=== PATIENT | female | born 1950 | race Caucasian/White ===

== ENCOUNTER 2018-05-06 12:34 | Day surgery (SDC) | payer BC, SELFPAY ==
--- NOTE | 2018-05-06 | PATH_ITS ---
[facility] Accession Number: [id number] . 01 Material submitted: . POLYP @ . 02 Diagnosis: Biopsy Colon Polyp at 20 cm: Hyperplastic polyp involving multiple biopsy fragments. MRV/05/07/2018 . 02 Electronically signed: . Dusty Guardado MD, Pathologist NPI- [id number] . 01 Gross description: . Received in one formalin-filled container labeled with the patient's name and labeled polyp at 20 cm, are multiple 0.1-0.3 cm portions of tissue, entirely submitted in one cassette. ([id number]) /FRR . 02 Pathologist provided ICD-10: K63.5 . 02 CPT . 648657 Performed at: 01 [facility] [address] [place] [address], [place], [place] [id number] MD Elton Clement MD Phone: [phone] Performed at: 02 [facility] [address] [place], [place] [id number] MD Werner Michael MD Phone: [phone]
[2018-05-06 13:25] VITALS: BP 104/62; PULSE 97; RESP 16; TEMP 36; O2SAT 95; BMI 30.2
[2018-05-06] MEDS: SODIUM CHLORIDE 0.9% 1,000 ML 200 ML IV (13:36)
[2018-05-06] MEDS: INSULIN REGULAR 100 UNIT/ML 3 ML VIAL IV (13:50)
--- NOTE | 2018-05-06 15:04 | PM.PREOP ---
Pre-operative Note Interval Note Pre-op Check: Yes History & Physical Reviewed by Physician and Yes Exam Performed Changes: No ASA Class (for procedural sedation): III
[2018-05-06] MEDS: fentaNYL 250 MCG/5 ML INJ IV (15:45)
[2018-05-06] MEDS: MIDAZOLAM 5 MG/5 ML VIAL IV (15:46)
[2018-05-06 15:54] VITALS: BP 124/64; PULSE 76; RESP 10; TEMP 36.4; O2SAT 95
[2018-05-06 15:56] VITALS: BP 110/62; PULSE 75; RESP 14; O2SAT 94
--- NOTE | 2018-05-06 15:59 | PM.OP.ENDO ---
Operative Date/Time/Diagnoses Date of procedure: 05/06/18 Time of procedure: 15:46 Pre-op diagnosis: Rectal bleeding. History of polyps Post-op diagnosis: same (Sigmoid diverticulosis. Multiple tiny lesions in the rectum probably lymphoid follicles. Random biopsies taken) Procedure & Clinicians Study performed: Colonoscopy with cold biopsy Same procedure as scheduled: Yes Indications: Rectal bleeding Surgeon: Mike Alonzo Procedure Notes SCOAP/Timeout: Performed Procedure in detail: The patient was placed in the left lateral decubitus position and underwent IV sedation directed by the surgeon consisting of fentanyl and Versed. Digital exam was remarkable for a very lax sphincter and a great deal of irritation of the skin around the anus. The scope was inserted and advanced through the rectum into the sigmoid, descending, transverse, and ascending colon.[Patient was noted have sigmoid diverticulosis. There was some tortuosity of the colon as well.]. The cecum was reached identified by the ileocecal valve and the appendiceal opening. The scope was gradually brought out. Polyps were found in the rectum but they were too numerous and looked to be non neoplastic. I took a [employer] sales representative sampling.. The scope ultimately was retroflexed in the rectum. The appearance was normal. The scope was removed and the patient tolerated the procedure well Scope withdrawal time: 10.5 min Sedation minutes: 32 Findings: diverticulosis and polyp Specimen(s): other (Polyps in the rectum) Complications: none Recommendations: Colonscopy in 5 years Follow up: as needed Disposition: PACU
[2018-05-06 16:01] VITALS: BP 113/61; PULSE 73; RESP 10; TEMP 36.3; O2SAT 94
[2018-05-06 16:10] VITALS: BP 117/48; PULSE 72; RESP 10; TEMP 36.1; O2SAT 95
--- NOTE | 2018-05-06 16:23 | SUR.PHASEII ---
Dr. Morgan notified of bg of 191. Per physician verbal order, pt to manage at home as per her normal recommendations by PCM. Pt verbally agrees to plan. Ashley RN, nurse assuming care also notified of plan.
--- NOTE | 2018-05-06 16:30 | SUR.PHASEII ---
assumed care from Sloane lang called dr hernandez about 191 blood sugar, instructed to follow up at home with treatment at home. pt voiced an understanding- selvin hinojosa called and pt left in stable condition.
== END 2018-05-06 16:34 | disposition home or self-care (01) ==
PROVIDERS: Family Provider Physician Assistant; PCP Physician Assistant; Visit Provider Specialist
PROC: 0DJD8ZZ Inspection of Lower Intestinal Tract, Via Natural or Artificial Opening Endoscopic (ICD-10-PCS; CPT 45378; principal; 2018-05-06 14:00)
DX: K63.5 Polyp of colon (principal); Z86.010 Personal history of colon polyps; K57.30 Diverticulosis of large intestine without perforation or abscess without bleeding; E11.9 Type 2 diabetes mellitus without complications; Z79.4 Long term (current) use of insulin; I10 Essential (primary) hypertension; E78.5 Hyperlipidemia, unspecified; M79.7 Fibromyalgia; E03.9 Hypothyroidism, unspecified
CPT/HCPCS: 45380; 99152; 99153; J2250; J3010

== ENCOUNTER → 2018-08-02 12:42 | Outpatient (CLI) | payer BC, SELFPAY ==
--- NOTE | 2018-08-02 12:43 | DI.MG.S_ITS ---
BILATERAL DIGITAL SCREENING MAMMOGRAM 3D/2D WITH CAD: 08/02/2018 CLINICAL: Routine screening. Comparison is made to exams dated: 05/26/2016 mammogram, 05/14/2015 mammogram, and 04/17/2014 mammogram - [facility]. The tissue of both breasts is predominantly fatty. Current study was also evaluated with a Computer Aided Detection (CAD) system. No significant masses, calcifications, or other findings are seen in either breast. There has been no significant interval change. IMPRESSION: NEGATIVE There is no mammographic evidence of malignancy. A 1 year screening mammogram is recommended. This exam was interpreted at Station ID: [id number]. NOTE: For mammograms, a report in lay terms will be sent to the patient. Approximately 15% of breast malignancies will not be visualized mammographically. In the management of a palpable breast mass, a negative mammogram must not discourage biopsy of a clinically suspicious lesion. Electronically Signed By: Yen rodrigues/vanessa:08/02/2018 13:35:20 letter sent: Normal Exam ACR BI-RADS Category 1: Negative 3341F
== END ==
PROVIDERS: Family Provider Physician Assistant; PCP Physician Assistant; Visit Provider Physician Assistant
DX: Z12.31 Encounter for screening mammogram for malignant neoplasm of breast (principal)
CPT/HCPCS: 77063; 77067

== ENCOUNTER → 2018-08-24 11:25 | Outpatient (CLI) | payer BC, SELFPAY ==
[2018-08-24 12:38] LABS: Alanine Aminotransferase 23 IU/L (9-52); Albumin 4.2 g/dL (3.5-5.0); Albumin Globulin Ratio 1.4 (1.0-2.8); Alkaline Phosphatase 77 U/L (38-126); Aspartate Aminotransferase 23 IU/L (14-36); Bilirubin Total 0.6 mg/dL (0.2-1.3); Blood Urea Nitrogen 14 mg/dL (7-17); Calcium 9.2 mg/dL (8.4-10.2); Carbon Dioxide 25 mmol/L (22-32); Chloride 106 mmol/L (98-107); Cholesterol 190 mg/dL (140-199); Estimated Glomerular Filt Rate > 60.0 mL/min (>60); Globulin 3.1 g/dL (1.7-4.1); Glucose 70 mg/dL (80-110); HDL Cholesterol 50 mg/dL (40-60); HEMOLYSIS < 15 (0-50); LDL Cholesterol Calculated 104 mg/dL (<100); Potassium 3.8 mmol/L (3.4-5.1); Sodium 140 mmol/L (137-145); Total Protein 7.3 g/dL (6.3-8.2); Triglycerides 178 mg/dL (35-150)
[2018-08-24 12:56] LABS: Free T4, Direct Thyroxine 0.96 ng/dL (0.78-2.19)
[2018-08-24 13:10] LABS: Thyroid Stimulating Hormone 1.98 uIU/mL (0.47-4.68)
[2018-08-24 14:35] LABS: Creatinine Urine Random 207.3 mg/dL
[2018-08-24 14:40] LABS: Microalbumi Creatinin Ratio Ur 13.9 ug/mg CR (<30); Microalbumin Urine Random 2.9 mg/dL (0-1.6)
== END ==
PROVIDERS: Family Provider Internal Medicine Cardiovascular Disease; PCP Physician Assistant; Visit Provider Physician Assistant
DX: E03.9 Hypothyroidism, unspecified (principal); E78.2 Mixed hyperlipidemia; I10 Essential (primary) hypertension; Z20.820 Contact with and (suspected) exposure to varicella
CPT/HCPCS: 36415; 80053; 80061; 82043; 82570; 84439; 84443; 86787

== ENCOUNTER → 2018-09-12 17:08 | Outpatient (CLI) | payer BC, SELFPAY ==
[2018-09-12 18:14] LABS: Hemoglobin A1C% w Est Avg Glu 9.9 % (4.0-6.0)
== END ==
PROVIDERS: Family Provider Internal Medicine Cardiovascular Disease; PCP Physician Assistant; Visit Provider Physician Assistant
DX: E11.65 Type 2 diabetes mellitus with hyperglycemia (principal); E11.8 Type 2 diabetes mellitus with unspecified complications; Z79.4 Long term (current) use of insulin
CPT/HCPCS: 36415; 83036

== ENCOUNTER → 2019-02-05 08:08 | Outpatient (CLI) | payer BC, SELFPAY ==
[2019-02-05 09:43] LABS: Add Manual Diff / Slide Review NO; Basophils Absolute Auto 100 /uL (0-100); Basophils Percent Auto 0.6 % (0-2); Eosinophils Absolute Auto 200 /uL (0-450); Eosinophils Percent Auto 2.2 % (2-4); Hematocrit 40.6 % (36-46); Hemoglobin 13.8 g/dL (12.0-16.0); Lymphocytes Absolute Auto 3800 /uL (1100-4500); Lymphocytes Percent Auto 36.9 % (25-40); Mean Corpuscular HGB Conc 34.1 % (30-36); Mean Corpuscular Hemoglobin 30.9 PG (26-34); Mean Corpuscular Volume 90.6 fL (80-100); Monocytes Absolute Auto 900 /uL (0-900); Monocytes Percent Auto 8.8 % (3-14); Neutrophils Absolute Auto 5300 /uL (1500-7000); Neutrophils Percent Auto 51.5 % (50-75); Platelet Count 290 X10^3/uL (150-400); Red Blood Cell Count 4.48 X10^6/uL (4.0-5.2); Red Cell Distribution Width 13.5 % (11.6-14.8); White Blood Cell Count 10.4 X10^3/uL (4.5-11.0)
[2019-02-05 09:54] LABS: Hemoglobin A1C% w Est Avg Glu 8.2 % (4.0-6.0)
[2019-02-05 10:15] LABS: Alanine Aminotransferase 18 IU/L (9-52); Albumin 4.3 g/dL (3.5-5.0); Albumin Globulin Ratio 1.4 (1.0-2.8); Alkaline Phosphatase 92 U/L (38-126); Aspartate Aminotransferase 26 IU/L (14-36); BUN Creatinine Ratio 23.8 (6-22); Bilirubin Total 0.5 mg/dL (0.2-1.3); Blood Urea Nitrogen 19 mg/dL (7-17); Calcium 9.7 mg/dL (8.4-10.2); Carbon Dioxide 24 mmol/L (22-32); Chloride 104 mmol/L (98-107); Cholesterol 196 mg/dL (140-199); Estimated Glomerular Filt Rate > 60.0 mL/min (>60); Globulin 3.1 g/dL (1.7-4.1); Glucose 181 mg/dL (80-110); HDL Cholesterol 51 mg/dL (40-60); HEMOLYSIS < 15 (0-50); LDL Cholesterol Calculated 97 mg/dL (<100); Potassium 3.8 mmol/L (3.4-5.1); Sodium 140 mmol/L (137-145); Total Protein 7.4 g/dL (6.3-8.2); Triglycerides 242 mg/dL (35-150)
[2019-02-05 10:34] LABS: Creatinine Urine Random 99.1 mg/dL
[2019-02-05 10:39] LABS: Microalbumi Creatinin Ratio Ur 18.1 ug/mg CR (<30); Microalbumin Urine Random 1.8 mg/dL (0-1.6)
[2019-02-05 10:47] LABS: Thyroid Stimulating Hormone 2.77 uIU/mL (0.47-4.68)
== END ==
PROVIDERS: PCP Physician Assistant; Visit Provider Physician Assistant
DX: E03.9 Hypothyroidism, unspecified (principal); E11.65 Type 2 diabetes mellitus with hyperglycemia; E11.8 Type 2 diabetes mellitus with unspecified complications; E78.2 Mixed hyperlipidemia; I10 Essential (primary) hypertension; Z79.4 Long term (current) use of insulin
CPT/HCPCS: 36415; 80053; 80061; 82043; 82570; 83036; 84443; 85025

== ENCOUNTER → 2019-04-11 14:57 | Outpatient (CLI) | payer BC, SELFPAY | PROVIDERS: PCP Physician Assistant; Visit Provider Physician Assistant | DX: M85.851 Other specified disorders of bone density and structure, right thigh (principal); M85.852 Other specified disorders of bone density and structure, left thigh; Z78.0 Asymptomatic menopausal state; E28.39 Other primary ovarian failure; E11.9 Type 2 diabetes mellitus without complications; N28.9 Disorder of kidney and ureter, unspecified; Z87.891 Personal history of nicotine dependence | CPT/HCPCS: 77080 ==

== ENCOUNTER → 2019-08-15 13:21 | Outpatient (CLI) | payer BC, SELFPAY ==
--- NOTE | 2019-08-15 | DI.MG.S_ITS ---
BILATERAL DIGITAL SCREENING MAMMOGRAM 3D/2D WITH CAD: 08/15/2019 CLINICAL: Routine screening. Comparison is made to exams dated: 08/02/2018 mammogram, 05/26/2016 mammogram, and 05/14/2015 mammogram - [facility]. The tissue of both breasts is predominantly fatty. Current study was also evaluated with a Computer Aided Detection (CAD) system. There are benign vascular calcifications in both breasts. No significant masses, calcifications, or other findings are seen in either breast. There has been no significant interval change. IMPRESSION: There is no mammographic evidence of malignancy. A 1 year screening mammogram is recommended. This exam was interpreted at Station ID: [id number]. NOTE: For mammograms, a report in lay terms will be sent to the patient. Approximately 15% of breast malignancies will not be visualized mammographically. In the management of a palpable breast mass, a negative mammogram must not discourage biopsy of a clinically suspicious lesion. Electronically Signed By: Yen rodrigues/vanessa:08/15/2019 15:22:02 letter sent: Normal Exam ACR BI-RADS Category 2: Benign Finding(s) 3342F
== END ==
PROVIDERS: Visit Provider Physician Assistant
DX: Z12.31 Encounter for screening mammogram for malignant neoplasm of breast (principal)
CPT/HCPCS: 77063; 77067